=== PATIENT | male | born 1975 | race Caucasian/White ===

== ENCOUNTER 2021-11-13 06:05 | Day surgery (SDC) | payer OTHER ==
[~2021-11-13] VITALS: Ht 175.3 cm; Wt 88.6 kg
[~2021-11-13 06:05] MED LIST: METHIMAZOLE10 MG PO; NEXIUM40 M1 PO; VENTOLIN HFA18 GM INH; ZYRTEC10 MG PO
[2021-11-13] MEDS ORDERED: CLARITIN10 MG PO (07:35)
--- NOTE | 2021-11-13 09:15 | NUR ---
11/13/21 0915 Madai Anderson 0909- PT ARRIVES TO PACU REACTIVE TO VERBAL STIMULI. RESP EVEN AND UNLABORED. OXYGEN SAT HIGH 90'S TO 100% ON 2L VIA NC. PT FALLS TO SLEEP WHEN NOT BEING TALKED TO.
--- NOTE | 2021-11-13 10:34 | OR ---
[facility] [address] [place], [place] [address] Signed DATE OF OPERATION: 11/13/2021 SURGEON: Estela Ruth MD PREOPERATIVE DIAGNOSES: 1. Gastroesophageal reflux disease. 2. Heartburn. 3. Mild esophageal dysphagia. POSTOPERATIVE DIAGNOSES: 1. Mild diffuse gastritis. 2. Small hiatal hernia. PROCEDURE: EGD with CLOtest and biopsies of the pyloric bulb, antrum and GE junction. INDICATIONS: Phil is a 45-year-old gentleman asked to see me for his initial upper endoscopy. He describes heartburn when he was a teenager. He said food will occasionally get stuck in the esophagus like mashed potatoes or peanut butter. He said he does great as long as he takes the Nexium. If he is off Nexium for three days, then it is miserable. Once in a while he use some Tums. He completely cut out the soda pop and switched over to sweet tea. He thinks that helped. Nevertheless, he was concerned about the persistence of his symptoms. His primary care provider asked him to come and see me with respect to the above. In the office, I had reviewed the above findings with Dain. Because of the dysphagia, we did offer him a barium swallow x-ray, he had declined. I gave him a brochure on acid reflux and hiatal hernias. We had reviewed that together in detail. We reviewed medical versus surgical treatment. We also reviewed various tests including the upper endoscopy. He understands upper endoscopy. There is risk including, but not limited to gas bloating, crampy abdominal pain, bleeding, perforation requiring surgery, and missed diagnosis. We also reviewed the need for IV conscious sedation. He had expressed understanding and wished to proceed. PROCEDURE NOTE: Phil was taken into our endoscopy suite and placed in the supine semi-recumbent position. The posterior oropharynx was anesthetized with lidocaine spray. A bite block was utilized for the case. The adult gastroscope was introduced and advanced under direct visualization of the camera into the duodenum without difficulty. The duodenum was unremarkable. Very mild inflammatory changes in his pyloric bulb and stomach. We took biopsies of the pyloric bulb and antrum for pathologic review. In addition, a Electronically Signed By: ESTELA RUTH MD 11/13/21 1034 PATIENT NAME: PHIL GROVER OPERATIVE REPORT DATE OF : 75 REPORT #: [id number] PHYSICIAN: ESTELA RUTH MD PCP: EMMA MADRIGAL PAC REPORT IS CONFIDENTIAL AND NOT TO BE RELEASED WITHOUT AUTHORIZATION [facility] [address] [place], [place] [address] Signed biopsy came out of the antrum for CLOtest. Upon retroflexion of the scope, I can see he has just a small hiatal hernia. There were no gastric or esophageal varices. The scope was withdrawn up through the area of the GE junction, which was compliant without stricture. His Z-line remains intact but he did have some inflammatory changes along the edge of the Z-line. We went ahead and took a biopsy in this area. There was no Manzano's mucosa. No distal esophagitis. The middle and upper esophagus were unremarkable. After this, the gas was suctioned out and the gastroscope removed. Phil tolerated the procedure quite well. RECOMMENDATIONS: I will see Phil maciel in my office in 7 to 14 days to review his results. Estela Ruth MD ALB/MODL /[id number] cc: ALLA Cohen MD Copies: ESTELA RUTH MD ~ Electronically Signed By: ESTELA RUTH MD 11/13/21 1034 PATIENT NAME: PHIL GROVER OPERATIVE REPORT DATE OF : 75 REPORT #: [id number] PHYSICIAN: ESTELA RUTH MD PCP: EMMA MADRIGAL PAC REPORT IS CONFIDENTIAL AND NOT TO BE RELEASED WITHOUT AUTHORIZATION
--- NOTE | 2021-11-14 13:01 | PATH ---
[facility] [address] [place], [place] [address] Signed SPECIMEN(S): A ANTRUM/PYLORUS BIOPSY SPECIMEN(S): B DUODENAL BULB BIOPSY SPECIMEN(S): C GE JUNCTION BIOPSY SPECIMEN SOURCE: A. ANTRUM/PYLORUS BIOPSY B. DUODENAL BULB BIOPSY C. GE JUNCTION BIOPSY CLINICAL HISTORY: Acid reflux; dysphagia. Post Op: Mild gastritis, small hiatal hernia. FINAL PATHOLOGIC DIAGNOSIS: A. Stomach, antrum/pylorus, biopsy: - Antral mucosa with no histopathologic abnormality. - Negative for Helicobacter organisms on HE stain. - Negative for dysplasia or malignancy. B. Duodenum, bulb, biopsy: - Duodenal bulb type mucosa with no histopathologic abnormality. - Negative for increased intraepithelial lymphocytes or villous blunting. - Negative for dysplasia or malignancy. C. Gastroesophageal junction, biopsy: - Cardia-oxyntic type gastric mucosa with no histopathologic abnormality. - Negative for intestinal metaplasia, dysplasia, or malignancy. NAL:cml:C2NR MICROSCOPIC EXAMINATION: Histologic sections of all submitted blocks are examined by light microscopy. These findings, together with the gross examination, support the pathologic diagnosis. GROSS DESCRIPTION: Three specimens are received in three containers, labeled "SP." A. The specimen, labeled "SP, antrum biopsy," is received in formalin and consists of one brown soft tissue fragment(s) that measure 0.2 cm in greatest dimension. The specimen is entirely submitted in cassette (A1). B. The specimen, labeled "SP, duodenum bulb biopsy," is received in formalin and consists of one brown soft tissue fragment(s) that measure 0.2 cm in greatest dimension. The specimen is entirely submitted in cassette (B1). PATIENT NAME: TRENTON GROVER PATHOLOGY DATE OF : 75 REPORT #: [id number] PHYSICIAN: [facility] PCP: EMMA MADRIGAL PAC REPORT IS CONFIDENTIAL AND NOT TO BE RELEASED WITHOUT AUTHORIZATION [facility] [address] [place] [address] Signed C. The specimen, labeled "SP, GE junction biopsy," is received in formalin and consists of one brown soft tissue fragment(s) that measure 0.3 cm in greatest dimension. The specimen is entirely submitted in cassette (C1). JS (under the direct supervision of a pathologist) The Gross Description was prepared using a voice recognition system. The report was reviewed for accuracy; however, sound-alike word errors, addition and/or deletions may occur. If there is any question about this report, please contact Client Services. PERFORMING LABORATORY: The technical component was performed by [facility], [address] [place] [id number] (Knockup Worker: Mari Huggins MD; CLIA# [id number]). [facility], [address] [address] (CLIA# [id number]). Diagnostician: Vandana Singh MD Pathologist Electronically Signed 11/14/2021 Copies: ~ PATIENT NAME: TRENTON GROVER PATHOLOGY DATE OF : 75 REPORT #: [id number] PHYSICIAN: [facility] PCP: EMMA MADRIGAL PAC REPORT IS CONFIDENTIAL AND NOT TO BE RELEASED WITHOUT AUTHORIZATION
== END 2021-11-13 09:58 | disposition home or self-care (01) ==
LOC: OPS 06:05 → DS 06:05 → OPS 08:15
PROVIDERS: ATTEND Colon & Rectal Surgery
PROC: 0DB68ZX Excision of Stomach, Via Natural or Artificial Opening Endoscopic, Diagnostic (ICD-10-PCS; 2021-11-13)
PROC: 0DB48ZX Excision of Esophagogastric Junction, Via Natural or Artificial Opening Endoscopic, Diagnostic (ICD-10-PCS; 2021-11-13)
PROC: 0DB98ZX Excision of Duodenum, Via Natural or Artificial Opening Endoscopic, Diagnostic (ICD-10-PCS; principal; 2021-11-13 08:15)
DX: K21.9 Gastro-esophageal reflux disease without esophagitis (principal); R13.19 Other dysphagia; K29.70 Gastritis, unspecified, without bleeding; K44.9 Diaphragmatic hernia without obstruction or gangrene; J45.909 Unspecified asthma, uncomplicated; Z87.891 Personal history of nicotine dependence; Z88.0 Allergy status to penicillin; Z20.822 Contact with and (suspected) exposure to COVID-19
CPT/HCPCS: 36415; 87077; 99153; C9803; G0500; J2250; J3010; J7121; U0003